=== PATIENT | female | born 1970 ===

== ENCOUNTER 2018-09-10 11:15 | Outpatient (CLI) | payer OTHER ==
[~2018-09-10] VITALS: Ht 170.2 cm; Wt 86.2 kg
== END 2018-09-10 11:30 | disposition home or self-care (01) ==
LOC: OFIC 805 11:15
DX: G47.33 Obstructive sleep apnea (adult) (pediatric) (principal); J04.0 Acute laryngitis

== ENCOUNTER 2018-12-25 08:08 | Outpatient (CLI) | payer OTHER ==
[~2018-12-25] VITALS: Ht 152.4 cm; Wt 86.2 kg
== END 2018-12-25 10:18 | disposition home or self-care (01) ==
LOC: OFIC 805 08:08
DX: G47.33 Obstructive sleep apnea (adult) (pediatric) (principal); E66.8 Other obesity

== ENCOUNTER → 2019-12-18 | Outpatient (CLI) | payer OTHER | END | disposition home or self-care (01) | LOC: OFIC 805 14:00 | PROVIDERS: ATTEND Otolaryngology | DX: K21.0 Gastro-esophageal reflux disease with esophagitis (principal); G47.33 Obstructive sleep apnea (adult) (pediatric); E66.8 Other obesity ==

== ENCOUNTER → 2020-04-13 | Outpatient (CLI) | payer OTHER | END | disposition home or self-care (01) | LOC: OFIC 805 11:00 | PROVIDERS: ATTEND Otolaryngology | DX: G47.33 Obstructive sleep apnea (adult) (pediatric) (principal); R53.83 Other fatigue ==